=== PATIENT | male | born 1960 | race African-American/Black ===

== ENCOUNTER 2017-10-03 22:55 | Inpatient (IN) | payer OTHER, MEDICARE ==
[~2017-10-03 22:55] MED LIST: AMLO10TA2 PO; ASPI-516 CHEW; ATOR40TA16 PO; CHLO25TA2 PO; DEXTROSE 50% IN WATER 50 ML VIAL(D50) IV PUSH PRN; GLUCAGON 1 MG/ML VIAL OTHER PRN; LOSA50TA PO; METF1000 PO; RESP: ALBUTEROL 2.5 MG/IPRATROPIUM 0.5 MG NEB (PRN) INH
[2017-10-04] VITALS (21 sets, daily range): BP systolic 128–161; BP diastolic 78–94; PULSE 72–100; RESP 16–20; TEMP 98–98.6; O2SAT 91–96
[2017-10-04] MEDS ORDERED: NALOXONE HCL 0.4 MG/ML AMP IV PUSH PRN
[2017-10-04] MEDS: methylPREDNISolone SOD SUCC 40 MG/1 ML VIAL IV PUSH SCH ×4 (00:10→17:26)
[2017-10-04] MEDS: ENOXAPARIN SODIUM 40 MG/0.4 ML SYRINGE SQ SCH ×2 (00:10→21:32)
--- NOTE | 2017-10-04 00:20 | HHI.HP ---
[facility] Service [place] [facility] Primary Care Physician Non-Staff Admission Diagnosis Diagnoses: Travel History International Travel<30 Days: No Contact w/Intl Traveler <30 Da: No Traveled to Known Affected Are: No History of Present Illness 57-year-old male with a past medical history of hypertension, hyperlipidemia, type 2 diabetes mellitus and TADEO presents to the emergency department and [place] with a dry cough and increasing shortness of breath times the past 3 days. The patient denies any history of COPD. He also endorses subjective chills without fevers. He states he has had a chest pressure for the past 3 days. It is not worse with deep inspiration. ABG in the ED showed 7.33/83/86/ 43. Troponin was elevated at 0.16. EKG pending. Patient was briefly treated with BiPAP in the [place] ED but was transitioned to nasal cannula for transport to [facility]. He is currently satting 92% on 6 L nasal cannula. Review of Systems Denies fever, subjective chills Denies blurry vision, otorrhea, rhinorrhea Denies sore throat and cough Positive chest pressure, shortness of breath No abdominal pain Denies constipation/diarrhea/nausea/vomiting Denies muscle pain/weakness No rashes Past Family Social History Past Medical History Hypertension Diabetes mellitus TADEO Hyperlipidemia Past Surgical History Left hip Right leg Reported Medications Reported Meds & Active Scripts Active Reported Aspirin 81 Mg Chew 81 Mg CHEW DAILY Atorvastatin (Atorvastatin Calcium) 40 Mg Tab 40 Mg PO HS Amlodipine (Amlodipine Besylate) 10 Mg Tab 10 Mg PO DAILY Losartan (Losartan Potassium) 50 Mg Tab 50 Mg PO DAILY Chlorthalidone 25 Mg Tab 25 Mg PO DAILY Metformin (Metformin HCl) 1,000 Mg Tab 1,000 Mg PO BIDPC Allergies: Coded Allergies: No Known Allergies (Unverified , 10/03/17) Family History Mother with diabetes mellitus Social History Denies alcohol, tobacco and illicit drugs Physical Exam Physical Exam GENERAL: Obese, male sitting up SKIN: No rashes, ecchymoses or lesions. Cool and dry. HEAD: Atraumatic. Normocephalic. No temporal or scalp tenderness. EYES: Pupils equal round and reactive. Extraocular motions intact. No scleral icterus. No injection or drainage. ENT: Nose without bleeding, purulent drainage or septal hematoma. Throat without erythema, tonsillar hypertrophy or exudate. Uvula midline. Airway patent. NECK: Trachea midline. No JVD or lymphadenopathy. Supple, nontender, no meningeal signs. CARDIOVASCULAR: Regular rate and rhythm without murmurs, gallops, or rubs. RESPIRATORY: No accessory muscle use. No wheezes, rales or rhonchi. GASTROINTESTINAL: Abdomen soft, non-tender, nondistended. No hepato-splenomegaly , or palpable masses. No guarding. MUSCULOSKELETAL: Extremities without clubbing, cyanosis, or edema. No joint tenderness, effusion, or edema noted. No calf tenderness. NEUROLOGICAL: Awake and alert. Cranial nerves II through XII intact. Motor and sensory grossly within normal limits. Normal speech. Caprini VTE Risk Assessment Caprini VTE Risk Assessment: Mod/High Risk (score >= 2) Caprini Risk Assessment Model Point Value = 1 Point Value = 2 Point Value = 3 Point Value = 5 Age 41-60 Minor surgery BMI > 25 kg/m2 Swollen legs Varicose veins or History of unexplained or recurrent spontaneous Oral contraceptives or hormone replacement Sepsis (< 1 month) Serious lung disease, including pneumonia (< 1 month) Abnormal pulmonary function Acute myocardial infarction Congestive heart failure (< 1 month) History of inflammatory bowel disease Medical patient at bed rest Age 61-74 Arthroscopic surgery Major open surgery (> 45 min) Laparoscopic surgery (> 45 min) Malignancy Confined to bed (> 72 hours) Immobilizing plaster cast Central venous access Age >= 75 History of VTE Family history of VTE Factor V Leiden Prothrombin [id number] Lupus anticoagulant Anticardiolipin antibodies Elevated serum homocysteine Heparin-induced thrombocytopenia Other congenital or acquired thrombophilia Stroke (< 1 month) Elective arthroplasty Hip, pelvis, or leg fracture Acute spinal cord injury (< 1 month) Prophylaxis Regimen Total Risk Factor Score Risk Level Prophylaxis Regimen 0-1 Low Early ambulation 2 Moderate Order ONE of the following: *Sequential Compression Device (SCD) *Heparin 5000 units SQ BID 3-4 Higher Order ONE of the following medications: *Heparin 5000 units SQ TID *Enoxaparin/Lovenox 40 mg SQ daily (WT < 150 kg, CrCl > 30 mL/min) *Enoxaparin/Lovenox 30 mg SQ daily (WT < 150 kg, CrCl > 10-29 mL/min) *Enoxaparin/Lovenox 30 mg SQ BID (WT < 150 kg, CrCl > 30 mL/min) AND/OR *Sequential Compression Device (SCD) 5 or more Highest Order ONE of the following medications: *Heparin 5000 units SQ TID (Preferred with Epidurals) *Enoxaparin/Lovenox 40 mg SQ daily (WT < 150 kg, CrCl > 30 mL/min) *Enoxaparin/Lovenox 30 mg SQ daily (WT < 150 kg, CrCl > 10-29 mL/min) *Enoxaparin/Lovenox 30 mg SQ BID (WT < 150 kg, CrCl > 30 mL/min) AND *Sequential Compression Device (SCD) Assessment and Plan Assessment and Plan Assessment/plan: 1. Shortness of breath/hypercapnia Patient without previously diagnosed COPD ABG 7.33/83/86/43 BiPAP with repeat ABG pending DuoNeb's IV steroids Pulmonary consulted, appreciate recommendations Monitor for signs of respiratory failure 2. Chest pressure/elevated troponin Initial troponin 0.16 EKG pending ACS rule out pending; serial troponins/EKGs 3. Diabetes mellitus Holding home metformin SSI Monitor blood glucose 4. Hypertension/hyperlipidemia Continue home medication FEN Heart healthy diet Electrolytes: monitor and replete prn Lovenox Physician Certification 2 Midnight Certification Type: Admission for Inpatient Services Order for Inpatient Services The services are ordered in accordance with Medicare regulations or non- Medicare payer requirements, as applicable. In the case of services not specified as inpatient-only, they are appropriately provided as inpatient services in accordance with the 2-midnight benchmark. Estimated LOS (days): 2 2 days is the estimated time the patient will need to remain in the hospital, assuming treatment plan goals are met and no additional complications. Post-Hospital Plan: Not yet determined Kim Kimble MD Oct 04, 2017 00:20
[2017-10-04 02:52] LABS: AUTOMATED NEUTROPHIL # 3.9 TH/MM3 (1.8-7.7); BASOPHIL % 0.1 % (0.0-2.0); EOSINOPHIL % 0.1 % (0.0-4.0); HEMATOCRIT 50.3 % (39.0-51.0); HEMOGLOBIN 15.9 GM/DL (13.0-17.0); LYMPH % 9.6 % (9.0-44.0); LYMPHOCYTE # 0.4 TH/MM3 (1.0-4.8); MEAN CELL VOLUME 91.5 FL (80.0-100.0); MEAN CORPUSCULAR HGB CONC 31.7 % (32.0-36.0); MEAN PLATELET VOLUME 8.2 FL (7.0-11.0); MONO % 1.2 % (0.0-8.0); MONOCYTE # 0.1 TH/MM3 (0-0.9); PLATELET COUNT 124 TH/MM3 (150-450); RED CELL DISTRIBUTION WIDTH 15.2 % (11.6-17.2); WHITE BLOOD COUNT 4.4 TH/MM3 (4.0-11.0)
[2017-10-04 03:10] LABS: BICARBONATE 40.5 MEQ/L (21.0-32.0); CALCIUM 8.8 MG/DL (8.5-10.1); CREATININE 0.95 MG/DL (0.60-1.30)
[2017-10-04 03:15] LABS: TROPONIN I 0.16 NG/ML (0.02-0.05)
[2017-10-04] MEDS: RESP: ALBUTEROL 2.5 MG/IPRATROPIUM 0.5 MG NEB (SCH) INH ×4 (04:00→20:13)
[2017-10-04] MEDS: INSULIN ASPART SUPPLEMENTAL SCALE SQ SCH ×4 (08:00→21:00)
[2017-10-04] MEDS: SODIUM CHLORIDE 0.9% FLUSH 10 ML FLUSH IV FLUSH SCH ×2 (08:52→21:00)
[2017-10-04] MEDS: ASPIRIN 81 MG CHEW TAB CHEW SCH (08:54)
[2017-10-04] MEDS: LOSARTAN 50 MG TAB PO SCH (08:54)
[2017-10-04] MEDS: PT OWN CHLORTHALIDONE 25 MG PO SCH (09:00)
[2017-10-04 10:20] LABS: TROPONIN I 0.14 NG/ML (0.02-0.05)
[2017-10-04] MEDS: LEVOFLOXACIN 750 MG PREMIX INJ 150 ML IV SCH (13:00)
[2017-10-04] MEDS ORDERED: DOCUSATE SODIUM 50 MG/SENNA 8.6 MG TAB PO PRN (13:30)
[2017-10-04] MEDS ORDERED: ONDANSETRON HCL 4 MG/2 ML VIAL IV PUSH PRN (13:30)
[2017-10-04] MEDS ORDERED: ACETAMINOPHEN 325 MG TAB PO PRN (13:30)
[2017-10-04] MEDS ORDERED: CALCIUM CARBONATE 500 MG CHEWABLE TAB CHEW PRN (13:30)
--- NOTE | 2017-10-04 13:30 | HHI.PR ---
Subjective Remarks Follow-up COPD exacerbation/respiratory failure with hypercapnia 10/04/17-patient seen and examined currently short of breath, denies any chest pain. On 10L simple mask Objective Vitals Vital Signs Date Time Temp Pulse Resp B/P (MAP) Pulse Ox O2 Delivery O2 Flow Rate FiO2 10/04/17 13:20 92 40 10/04/17 10:55 94 40 10/04/17 10:00 72 10/04/17 09:00 100 10/04/17 08:59 96 10/04/17 08:00 98.0 100 18 142/94 (110) 94 10/04/17 08:00 97 10/04/17 07:56 95 Simple Mask 10.00 10/04/17 07:00 97 10/04/17 06:00 96 10/04/17 05:00 98 10/04/17 04:00 98 10/04/17 04:00 94 40 10/04/17 03:00 94 10/04/17 03:00 98.2 95 17 154/93 (113) 94 10/04/17 01:47 93 40 10/04/17 00:19 98.4 88 20 161/78 (105) 92 I/O 10/03/17 10/03/17 10/03/17 10/04/17 10/04/17 10/04/17 07:00 15:00 23:00 07:00 15:00 23:00 Intake Total 240 ml Output Total 350 ml Balance -110 ml Intake Oral 240 ml Output Urine Total 350 ml Result Diagram: 10/04/1722710/04/178 Objective Remarks GENERAL: NAD SKIN: Warm and dry. HEAD: Normocephalic. EYES: No scleral icterus. No injection or drainage. NECK: Supple, trachea midline. No JVD or lymphadenopathy. CARDIOVASCULAR: Regular rate and rhythm without murmurs, gallops, or rubs. RESPIRATORY: Breath sounds decrease bilaterally. No accessory muscle use. GASTROINTESTINAL: Abdomen soft, non-tender, nondistended. MUSCULOSKELETAL: No cyanosis, or edema. BACK: Nontender without obvious deformity. No CVA tenderness. A/P Problem List: (1) Respiratory failure with hypercapnia ICD Code: J96.92 - Respiratory failure, unspecified with hypercapnia (2) COPD with exacerbation ICD Code: J44.1 - Chronic obstructive pulmonary disease with (acute) exacerbation Assessment and Plan 57-year-old man with 1. Respiratory failure with hypercapnia/COPD exacerbation Repeat ABG Resume BiPAP and consult and consult pulmonary medicine Continue steroid, DuoNeb, add Spiriva and antibiotic Check CTA to rule out PE 2. Chest pressure/elevated troponin Check CTA to rule out PE 3. Diabetes mellitus Holding home metformin SSI Monitor blood glucose 4. Hypertension/hyperlipidemia Continue home medication Leroy Baker MD Oct 04, 2017 13:30
--- NOTE | 2017-10-04 13:52 | EKG ---
Date Performed: 10/04/2017 Time Performed: 08:32:50 PTAGE: 57 years EKG: Sinus rhythm Poor R wave progression - probable normal variant Borderline ECG PREVIOUS TRACING : 10/04/2017 01.56 DOCTOR: Chepe Reyes Interpretating Date/Time 10/04/2017 13:50:57
--- NOTE | 2017-10-04 14:40 | EKG ---
Date Performed: 10/04/2017 Time Performed: 01:56:50 PTAGE: 57 years EKG: Sinus rhythm Poor R wave progression - probable normal variant Low QRS voltages in limb leads Borderline ECG NO PREVIOUS TRACING DOCTOR: Chepe Reyes Interpretating Date/Time 10/04/2017 14:39:56
[2017-10-04 14:53] LABS: INTERNATIONAL NORMALIZED RATIO 1.1 RATIO; PROTHROMBIN TIME - PATIENT 11.6 SEC (9.8-11.6)
[2017-10-04] MEDS: RESP: ALBUTEROL 2.5 MG/IPRATROPIUM 0.5 MG NEB (SCH) NEB ×2 (16:00→20:13)
[2017-10-04] MEDS ORDERED: IOHEXOL 350 MG/ML 10 ML VIAL (for RAD DIAG) IVCONTRAST ONE (16:53)
--- NOTE | 2017-10-04 17:04 | RADRPT ---
EXAM DATE/TIME: 10/04/2017 16:20 [facility] COMPARISON: No previous studies available for comparison. INDICATIONS : Hypoxic IV CONTRAST: 75 cc Omnipaque 350 (iohexol) IV RADIATION DOSE: 25.97 CTDIvol (mGy) MEDICAL HISTORY : Hypertension. Diabetes SURGICAL HISTORY : None. ENCOUNTER: Initial ACUITY: 1 day PAIN SCALE: 0/10 LOCATION: chest TECHNIQUE: Volumetric scanning of the chest was performed using a pulmonary embolism protocol MIP images were re constructed. Using automated exposure control and adjustment of the mA and/or kV according to patien t size, radiation dose was kept as low as reasonably achievable to obtain optimal diagnostic quality images. DICOM format image data is available electronically for review and comparison. Follow-up recommendations for detected pulmonary nodules are based at a minimum on nodule size and pa tient risk factors according to Fleischner Society Guidelines. FINDINGS: PULMONARY ARTERIES: No filling defects are seen in the pulmonary arteries through the segmental level. LUNGS: Subsegmental airspace disease is identified in the right lower lobe. The lungs are otherwise clear. PLEURAE: There is no pleural thickening or pleural effusion. MEDIASTINUM: A paratracheal soft tissue mass is identified in the superior mediastinum characteristics of substern al extension of a thyroid goiter. Small prevascular lymph nodes are seen along the aortic arch. The largest measures 2.2 x 0.88 cm in size. Heart is unremarkable except for mild calcific plaque in the coronary arteries. MUSCULOSKELETAL: Within normal limits for patient age. MISCELLANEOUS: The liver appears enlarged. CONCLUSION: 1. No evidence of pulmonary embolism. 2. Right lower lobe subsegmental airspace disease. 3. Nonspecific prevascular manny enlargement. 4. Hepatomegaly. 5. Superior mediastinal mass characteristic of a large thyroid goiter. Ravin Alexis MD on October 04, 2017 at 16:58 Board Certified Radiologist. This report was verified electronically.
[2017-10-04] MEDS: HEPARIN SODIUM - SQ 10,000 UNITS/ML VIAL SQ SCH (21:31)
[2017-10-04] MEDS: ATORVASTATIN 40 MG TAB PO SCH (21:31)
--- NOTE | 2017-10-04 21:41 | MB ---
cc: KATINA OLIVIER DATE OF CONSULTATION 10/04/2017 REASON FOR CONSULTATION Respiratory failure, COPD and possible sleep apnea. HISTORY OF PRESENT ILLNESS This is a 57-year-old obese man with a history of hypertension, hyperlipidemia, diabetes mellitus type 2 and obstructive sleep apnea was [facility] with a dry cough, wheezing, shortness of breath for 2-3 days. The patient also had some chills and fevers, chest pressure and weakness and pain upon taking deep breaths. A chest x-ray was done which showed evidence of atelectasis and the patient had blood gases which showed hypercapnia and hypoxemia. He was placed on BiPap and transferred to the intensive care unit. The patient has a cough but does not bring up much sputum. He does have some leg swelling. He has no hemoptysis. PAST MEDICAL HISTORY Past history has included: 1. A history of diabetes mellitus type 2. 2. History of obstructive sleep apnea. 3. Hyperlipidemia. 4. He has had surgery of the left hip. SOCIAL HISTORY Habits, the patient does not smoke. No significant alcohol use. FAMILY HISTORY Significant for diabetes mellitus. MEDICATIONS 1. Metformin 1000 mg b.i.d. 2. Losartan 50 mg a day. 3. Chlorthalidone 25 milligrams. 4. Atorvastatin 40 mg at bedtime. 5. Amlodipine 10 mg daily. 6. Aspirin one daily. REVIEW OF SYSTEMS The patient is unable to provide any details. He is on a BiPap mask presently. ALLERGIES None listed. PHYSICAL EXAMINATION GENERAL: This obese, middle-aged -[place] male who is in bed. He is on BiPap mask. He is mildly dyspneic at rest. VITAL SIGNS: Blood pressure 150/70, pulse 90, respirations 24, temperature 98.2. HEENT: Head normocephalic. Pupils are reactive. Tongue is moist. Nasal mucosal erythematous. NECK: Supple with mild venous distension while sitting upright, trachea midline. No thyroid enlargement. CHEST: Distant breath sounds with expiratory wheezes throughout both lung julio. Prolonged expirations. HEART: The heart sounds are regular S1-S2 with no murmur. No S3. ABDOMEN: The abdomen is soft, protuberant without masses. No organomegaly or tenderness. Bowel sounds are active. EXTREMITIES: Mild varicosities, edema 1+. Peripheral pulses are not well palpable. NEUROLOGIC: He is awake, moves all extremities and responds appropriately. Reflexes are 1+. No gross motor deficits. SKIN: No lesions observed. IMPRESSION 1. Hypercapnic respiratory failure. 2. Basilar atelectasis with probable pneumonia. 3. Rule out pulmonary embolism. 4. Chronic obstructive pulmonary disease. 5. Diabetes mellitus. 6. Obstructive sleep apnea. 7. Hypertension. PLAN The patient has been scheduled to go for a CTA of chest. We will also place him on subcu heparin at 5000 units b.i.d. We will add Levaquin 750 mg IV daily for exacerbation of COPD. Solu-Medrol 40 mg IV q.6h. A blood gas study to be repeated on BiPap which will be placed at 15/7 and FIO2 of 35%. The patient will be continued on his hypertensive medications and diabetic medications. Repeat chest x-ray in the a.m. Sputum will be sent for Gram stain and culture. A nebulized DuoNeb solution was started every 4 hours while awake. Thank you Dr. Baker for this consultation. MD RTICIA Abernathy/ANA CRISTINA /5:29 PM /9:16 PM
[2017-10-05] VITALS (14 sets, daily range): BP systolic 123–139; BP diastolic 76–85; PULSE 80–93; RESP 18–20; TEMP 98.3–98.7; O2SAT 91–94
[2017-10-05] MEDS: methylPREDNISolone SOD SUCC 40 MG/1 ML VIAL IV PUSH SCH ×4 (01:27→17:25)
[2017-10-05 05:53] LABS: AUTOMATED NEUTROPHIL # 2.9 TH/MM3 (1.8-7.7); BASOPHIL % 0.1 % (0.0-2.0); HEMATOCRIT 49.5 % (39.0-51.0); HEMOGLOBIN 15.4 GM/DL (13.0-17.0); LYMPH % 7.6 % (9.0-44.0); LYMPHOCYTE # 0.3 TH/MM3 (1.0-4.8); MEAN CORPUSCULAR HEMOGLOBIN 28.6 PG (27.0-34.0); MEAN CORPUSCULAR HGB CONC 31.1 % (32.0-36.0); MEAN PLATELET VOLUME 7.7 FL (7.0-11.0); MONO % 5.6 % (0.0-8.0); MONOCYTE # 0.2 TH/MM3 (0-0.9); NEUT % 86.7 % (16.0-70.0); PLATELET COUNT 123 TH/MM3 (150-450); RED BLOOD COUNT 5.38 MIL/MM3 (4.50-5.90); RED CELL DISTRIBUTION WIDTH 15.3 % (11.6-17.2); WHITE BLOOD COUNT 3.4 TH/MM3 (4.0-11.0)
[2017-10-05] MEDS ORDERED: methylPREDNISolone SOD SUCC 125 MG/2 ML VIAL ONE (06:07)
[2017-10-05 06:12] LABS: BICARBONATE 42.7 MEQ/L (21.0-32.0); CREATININE 0.75 MG/DL (0.60-1.30)
[2017-10-05] MEDS: RESP: ALBUTEROL 2.5 MG/IPRATROPIUM 0.5 MG NEB (SCH) NEB ×4 (07:35→20:08)
[2017-10-05] MEDS: INSULIN ASPART SUPPLEMENTAL SCALE SQ SCH ×4 (08:16→21:50)
[2017-10-05] MEDS: PT OWN CHLORTHALIDONE 25 MG PO SCH (09:00)
[2017-10-05] MEDS: LOSARTAN 50 MG TAB PO SCH (09:11)
[2017-10-05] MEDS: ASPIRIN 81 MG CHEW TAB CHEW SCH (09:12)
[2017-10-05] MEDS: HYDROCHLOROTHIAZIDE 25 MG TAB PO SCH (09:12)
[2017-10-05] MEDS: TIOTROPIUM BROMIDE 18 MCG INH INH SCH (09:12)
[2017-10-05] MEDS: HEPARIN SODIUM - SQ 10,000 UNITS/ML VIAL SQ SCH ×2 (09:12→21:51)
[2017-10-05] MEDS: SODIUM CHLORIDE 0.9% FLUSH 10 ML FLUSH IV FLUSH SCH ×2 (09:13→21:51)
--- NOTE | 2017-10-05 09:24 | HHI.PR ---
Subjective Remarks Follow-up COPD exacerbation/respiratory failure with hypercapnia 10/04/17-patient seen and examined currently short of breath, denies any chest pain. On 10L simple mask 10/05/17-patient seen and examined, required BiPAP 4 hours overnight. States he feels some dizziness when standing up. Still with some shortness of breath. BP improved. Patient currently now on 8 L nasal cannula Objective Vitals Vital Signs Date Time Temp Pulse Resp B/P (MAP) Pulse Ox O2 Delivery O2 Flow Rate FiO2 10/05/17 07:36 98.4 84 20 136/85 (102) 94 10/05/17 07:35 84 10/05/17 07:35 92 Nasal Cannula 6.00 10/05/17 07:34 94 Nasal Cannula 6.00 10/05/17 05:33 92 Nasal Cannula 6.00 10/05/17 04:35 93 40 10/05/17 03:17 90 Bi-Pap 40 10/05/17 03:00 98.6 90 18 139/80 (99) 91 10/05/17 03:00 90 10/05/17 00:12 93 40 10/05/17 00:00 90 Bi-Pap 40 10/04/17 23:00 94 10/04/17 23:00 93 Nasal Cannula 6.00 10/04/17 23:00 98.6 94 18 144/78 (100) 94 10/04/17 20:13 95 Nasal Cannula 6.00 10/04/17 19:00 98.4 89 18 153/85 (107) 91 10/04/17 19:00 91 Nasal Cannula 6.00 10/04/17 19:00 81 10/04/17 17:12 95 40 10/04/17 15:00 94 10/04/17 15:00 94 Bi-Pap 40 10/04/17 15:00 98.3 94 16 134/87 (103) 94 10/04/17 13:20 92 40 10/04/17 13:00 96 10/04/17 12:00 98.1 98 18 128/81 (97) 95 10/04/17 12:00 98 10/04/17 10:55 94 40 10/04/17 10:00 72 I/O 10/04/17 10/04/17 10/04/17 10/05/17 10/05/17 10/05/17 07:00 15:00 23:00 07:00 15:00 23:00 Intake Total 240 ml 200 ml 480 ml Output Total 350 ml 950 ml 1820 ml Balance -110 ml -750 ml -1340 ml Intake Oral 240 ml 200 ml 480 ml Output Urine Total 350 ml 950 ml 1820 ml # Bowel Movements 0 Result Diagram: 10/05/17 0453 10/05/17 [address] Angiography 10/04/17 1246 Signed Impressions: Service Date/Time: Wednesday, October 04, 2017 16:20 - CONCLUSION: 1. No evidence of pulmonary embolism. 2. Right lower lobe subsegmental airspace disease. 3. Nonspecific prevascular manny enlargement. 4. Hepatomegaly. 5. Superior mediastinal mass characteristic of a large thyroid goiter. Ravin Alexis MD Objective Remarks GENERAL: NAD SKIN: Warm and dry. HEAD: Normocephalic. EYES: No scleral icterus. No injection or drainage. NECK: Supple, trachea midline. No JVD or lymphadenopathy. CARDIOVASCULAR: Regular rate and rhythm without murmurs, gallops, or rubs. RESPIRATORY: Breath sounds decrease bilaterally. No accessory muscle use. GASTROINTESTINAL: Abdomen soft, non-tender, nondistended. MUSCULOSKELETAL: No cyanosis, or edema. BACK: Nontender without obvious deformity. No CVA tenderness. A/P Problem List: (1) Respiratory failure with hypercapnia ICD Code: J96.92 - Respiratory failure, unspecified with hypercapnia (2) COPD with exacerbation ICD Code: J44.1 - Chronic obstructive pulmonary disease with (acute) exacerbation (3) Benign hypertension ICD Code: I10 - Essential (primary) hypertension (4) Diabetes mellitus, type II ICD Code: E11.9 - Type 2 diabetes mellitus without complications Assessment and Plan 57-year-old man with 1. Respiratory failure with hypercapnia/COPD exacerbation BiPAP when necessary Appreciate input from pulmonary medicine CTA noted and review by me without any evidence of PE Continue steroid, DuoNeb, Spiriva and antibiotic Wean oxygen 2. Chest pressure/elevated troponin CTA WITHOUT ANY evidence of PE 3. Diabetes mellitus Continue to Holding home metformin SSI Monitor blood glucose 4. Hypertension/hyperlipidemia Continue home medications DVT prophylaxis: Heparin PT consult to treat and eval Will transfer patient to [facility] Total critical care time spent 50 minutes Leroy Baker MD Oct 05, 2017 09:24
--- NOTE | 2017-10-05 12:45 | HHI.PR ---
Subjective Remarks He is better. Now on a N/C at 5 l. Has some wheezing. Used BiPAP last PM Objective Vital Signs Date Time Temp Pulse Resp B/P (MAP) Pulse Ox O2 Delivery O2 Flow Rate FiO2 10/05/17 11:11 94 Nasal Cannula 6.00 10/05/17 11:11 88 10/05/17 11:10 98.3 88 20 123/77 (92) 94 10/05/17 07:36 98.4 84 20 136/85 (102) 94 10/05/17 07:35 84 10/05/17 07:35 92 Nasal Cannula 6.00 10/05/17 07:34 94 Nasal Cannula 6.00 10/05/17 05:33 92 Nasal Cannula 6.00 10/05/17 04:35 93 40 10/05/17 03:17 90 Bi-Pap 40 10/05/17 03:00 98.6 90 18 139/80 (99) 91 10/05/17 03:00 90 10/05/17 00:12 93 40 10/05/17 00:00 90 Bi-Pap 40 10/04/17 23:00 94 10/04/17 23:00 93 Nasal Cannula 6.00 10/04/17 23:00 98.6 94 18 144/78 (100) 94 10/04/17 20:13 95 Nasal Cannula 6.00 10/04/17 19:00 98.4 89 18 153/85 (107) 91 10/04/17 19:00 91 Nasal Cannula 6.00 10/04/17 19:00 81 10/04/17 17:12 95 40 10/04/17 15:00 94 10/04/17 15:00 94 Bi-Pap 40 10/04/17 15:00 98.3 94 16 134/87 (103) 94 10/04/17 13:20 92 40 10/04/17 13:00 96 I/O 10/04/17 10/04/17 10/04/17 10/05/17 10/05/17 10/05/17 07:00 15:00 23:00 07:00 15:00 23:00 Intake Total 240 ml 200 ml 480 ml Output Total 350 ml 950 ml 1820 ml Balance -110 ml -750 ml -1340 ml Intake Oral 240 ml 200 ml 480 ml Output Urine Total 350 ml 950 ml 1820 ml # Bowel Movements 0 Result Diagram: 10/05/17 0453 10/05/17 0453 Objective Remarks GENERAL: This obese, middle-aged -[place] male who is in bed. He is mildly dyspneic at rest. HEENT: Head normocephalic. Pupils are reactive. Tongue is moist. Nasal mucosal erythematous. NECK: Supple with mild venous distension while sitting upright, trachea midline. No thyroid enlargement. CHEST: Distant breath sounds with expiratory wheezes throughout both lung julio. Prolonged expirations.Occ Crackles at bases HEART: The heart sounds are regular S1-S2 with no murmur. No S3. ABDOMEN: The abdomen is soft, protuberant without masses. No organomegaly or tenderness. Bowel sounds are active. EXTREMITIES: Mild varicosities, edema 1+. Peripheral pulses are not well palpable. NEUROLOGIC: He is awake, moves all extremities and responds appropriately. Reflexes are 1+. No gross motor deficits. SKIN: No lesions observed. Assessment and Plan Assessment and Plan IMPRESSION 1. Hypercapnic respiratory failure. 2. Basilar atelectasis with probable pneumonia. 3. Rule out pulmonary embolism. 4. Chronic obstructive pulmonary disease. 5. Diabetes mellitus. 6. Obstructive sleep apnea. 7. Hypertension. Plan : 1. Wean o2 to keep sat >90. 2. Continue antibiotics, Rocephin,and Levaquin 3. BiPAP at HS12/5 CM,FIO2 30% 4. PFT in am. [facility]. [facility] 6. CBC,CXR in am 7. Symbicort 160/4.5 Mcg , 2 puffs bid Lynette Louise MD Oct 05, 2017 12:45
[2017-10-05] MEDS: LEVOFLOXACIN 750 MG PREMIX INJ 150 ML IV SCH (13:23)
[2017-10-05] MEDS: cefTRIAXone INJ 2,000 MG in SODIUM CHLORIDE 0.9% INJ 100 ML IV SCH (17:25)
[2017-10-05] MEDS: ATORVASTATIN 40 MG TAB PO SCH (21:51)
[2017-10-06] VITALS (10 sets, daily range): BP systolic 119–135; BP diastolic 59–80; PULSE 16–94; RESP 15–18; TEMP 97.3–99; O2SAT 35–99
--- NOTE | 2017-10-06 05:53 | RADRPT ---
EXAM DATE/TIME: 10/06/2017 04:55 [facility] COMPARISON: CHEST SINGLE AP, October 03, 2017, 18:52. INDICATIONS : Evaluate for infiltrate MEDICAL HISTORY : Hypertension. Diabetes mellitus type II. SURGICAL HISTORY : None. ENCOUNTER: Subsequent ACUITY: 4 - 6 days PAIN SCORE: Non-responsive. LOCATION: Bilateral chest FINDINGS: Single AP view of the chest. Low lung volumes with elevation of right hemidiaphragm unchanged. Cardia c silhouette is prominent but unchanged. New mild patchy opacity in the right midlung indicating atelectasis versus minimal consolidation. No evidence of pleural effusion or pneumothorax. CONCLUSION: New mild patchy opacity in right midlung. Carrington Elizondo MD on October 06, 2017 at 5:51 Board Certified Radiologist. This report was verified electronically.
[2017-10-06] MEDS: methylPREDNISolone SOD SUCC 40 MG/1 ML VIAL IV PUSH SCH ×4 (06:00→21:56)
[2017-10-06] MEDS: RESP: ALBUTEROL 2.5 MG/IPRATROPIUM 0.5 MG NEB (SCH) NEB ×4 (07:23→19:08)
[2017-10-06] MEDS: INSULIN ASPART SUPPLEMENTAL SCALE SQ SCH ×4 (08:00→21:55)
[2017-10-06] MEDS: LOSARTAN 50 MG TAB PO SCH (08:58)
[2017-10-06] MEDS: ASPIRIN 81 MG CHEW TAB CHEW SCH (08:58)
[2017-10-06] MEDS: TIOTROPIUM BROMIDE 18 MCG INH INH SCH (08:58)
[2017-10-06] MEDS: HEPARIN SODIUM - SQ 10,000 UNITS/ML VIAL SQ SCH ×2 (08:58→21:42)
[2017-10-06] MEDS: HYDROCHLOROTHIAZIDE 25 MG TAB PO SCH (08:59)
[2017-10-06] MEDS: PT OWN CHLORTHALIDONE 25 MG PO SCH (08:59)
[2017-10-06] MEDS: SODIUM CHLORIDE 0.9% FLUSH 10 ML FLUSH IV FLUSH SCH ×2 (08:59→21:42)
--- NOTE | 2017-10-06 12:10 | HHI.PR ---
Subjective Remarks Follow-up COPD exacerbation/respiratory failure with hypercapnia 10/04/17-patient seen and examined currently short of breath, denies any chest pain. On 10L simple mask 10/05/17-patient seen and examined, required BiPAP 4 hours overnight. States he feels some dizziness when standing up. Still with some shortness of breath. BP improved. Patient currently now on 8 L nasal cannula 10/06/17-patient seen and examined, currently on 3 nasal cannula and reports some improvement of shortness of breath. No acute event overnight.Did No use BiPAP overnight to sleep. Objective Vitals Vital Signs Date Time Temp Pulse Resp B/P (MAP) Pulse Ox O2 Delivery O2 Flow Rate FiO2 10/06/17 11:01 3.00 10/06/17 11:01 93 3.00 10/06/17 11:00 90 10/06/17 11:00 97.3 17 16 127/78 (94) 93 10/06/17 11:00 93 Nasal Cannula 2.00 10/06/17 07:00 97.8 16 16 130/77 (94) 96 10/06/17 07:00 96 Bi-Pap 40 10/06/17 07:00 81 10/06/17 04:00 35 35 10/06/17 03:00 84 10/06/17 03:00 98.5 85 15 135/80 (98) 95 10/06/17 03:00 95 Bi-Pap 40 10/06/17 00:40 97 40 10/05/17 23:00 94 Nasal Cannula 4.00 10/05/17 23:00 86 10/05/17 23:00 98.6 80 18 126/79 (95) 94 10/05/17 20:07 93 Nasal Cannula 3.00 10/05/17 19:00 98.7 93 20 128/78 (95) 91 10/05/17 19:00 93 10/05/17 19:00 91 Nasal Cannula 4.00 10/05/17 15:07 92 10/05/17 15:06 98.3 92 20 132/76 (94) 94 10/05/17 15:06 94 Nasal Cannula 3.00 10/05/17 13:14 93 Nasal Cannula 3.00 I/O 10/05/17 10/05/17 10/05/17 10/06/17 10/06/1710/06/17 07:00 15:00 23:00 07:00 15:00 23:00 Intake Total 480 ml 150 ml 1500 ml 480 ml Output Total 1820 ml 1060 ml 1990 ml Balance -1340 ml 150 ml 440 ml -1510 ml Intake Oral 480 ml 1400 ml 480 ml IV Total 150 ml 100 ml Output Urine Total 1820 ml 1060 ml 1990 ml # Voids 3 6 # Bowel Movements 0 0 Result Diagram: 10/05/17 0453 10/05/17 0453 Imaging Last Impressions Chest X-Ray 10/06/17 0600 Signed Impressions: Service Date/Time: Friday, October 06, 2017 04:55 - CONCLUSION: New mild patchy opacity in right midlung. Carrington Elizondo MD CT Angiography 10/04/17 1246 Signed Impressions: Service Date/Time: Wednesday, October 04, 2017 16:20 - CONCLUSION: 1. No evidence of pulmonary embolism. 2. Right lower lobe subsegmental airspace disease. 3. Nonspecific prevascular manny enlargement. 4. Hepatomegaly. 5. Superior mediastinal mass characteristic of a large thyroid goiter. Ravin Alexis MD Objective Remarks GENERAL: NAD SKIN: Warm and dry. HEAD: Normocephalic. EYES: No scleral icterus. No injection or drainage. NECK: Supple, trachea midline. No JVD or lymphadenopathy. CARDIOVASCULAR: Regular rate and rhythm without murmurs, gallops, or rubs. RESPIRATORY: Breath sounds decrease bilaterally. No accessory muscle use. GASTROINTESTINAL: Abdomen soft, non-tender, nondistended. MUSCULOSKELETAL: No cyanosis, or edema. BACK: Nontender without obvious deformity. No CVA tenderness. Procedures none A/P Problem List: (1) Respiratory failure with hypercapnia ICD Code: J96.92 - Respiratory failure, unspecified with hypercapnia (2) COPD with exacerbation ICD Code: J44.1 - Chronic obstructive pulmonary disease with (acute) exacerbation (3) Benign hypertension ICD Code: I10 - Essential (primary) hypertension (4) Diabetes mellitus, type II ICD Code: E11.9 - Type 2 diabetes mellitus without complications (5) PNA (pneumonia) ICD Code: J18.9 - Pneumonia, unspecified organism Assessment and Plan 57-year-old man with 1. Respiratory failure with hypercapnia/COPD exacerbation-Improving BiPAP when necessary Appreciate input from pulmonary medicine CTA noted and review by me without any evidence of PE Continue steroid, DuoNeb, Spiriva and antibiotics according Rocephin and Levaquin per pulmonary medicine Wean oxygen Will do walk test 2. Community acquired pneumonia Chest x-ray noted and review with finding of mid right lung opacity Currently on both Rocephin and Levaquin 3. Chest pressure/elevated troponin CTA WITHOUT ANY evidence of PE 4. Diabetes mellitus Resume home metformin SSI Monitor blood glucose 5. Hypertension/hyperlipidemia Continue home medications DVT prophylaxis: Heparin PT consult to treat and eval Will transfer patient to [facility] Total critical care time spent 45 minutes Leroy Baker MD Oct 06, 2017 12:10
[2017-10-06] MEDS: LEVOFLOXACIN 750 MG PREMIX INJ 150 ML IV SCH (14:01)
[2017-10-06] MEDS: SODIUM CHLORIDE 0.9% FLUSH 10 ML FLUSH IV FLUSH PRN (14:03)
[2017-10-06] MEDS: cefTRIAXone INJ 2,000 MG in SODIUM CHLORIDE 0.9% INJ 100 ML IV SCH (16:46)
--- NOTE | 2017-10-06 18:38 | HHI.PR ---
Subjective Remarks He is better. Now on a N/C at 3 l. Has less wheezing. CXR improved. Used BiPAP last PM Objective Vital Signs Date Time Temp Pulse Resp B/P (MAP) Pulse Ox O2 Delivery O2 Flow Rate FiO2 10/06/17 16:00 97.6 76 17 129/78 (95) 95 10/06/17 15:17 93 Nasal Cannula 4.00 10/06/17 11:01 3.00 10/06/17 11:01 93 3.00 10/06/17 11:00 90 10/06/17 11:00 97.3 17 16 127/78 (94) 93 10/06/17 11:00 93 Nasal Cannula 2.00 10/06/17 07:00 97.8 16 16 130/77 (94) 96 10/06/17 07:00 96 Bi-Pap 40 10/06/17 07:00 81 10/06/17 04:00 35 35 10/06/17 03:00 84 10/06/17 03:00 98.5 85 15 135/80 (98) 95 10/06/17 03:00 95 Bi-Pap 40 10/06/17 00:40 97 40 10/05/17 23:00 94 Nasal Cannula 4.00 10/05/17 23:00 86 10/05/17 23:00 98.6 80 18 126/79 (95) 94 10/05/17 20:07 93 Nasal Cannula 3.00 10/05/17 19:00 98.7 93 20 128/78 (95) 91 10/05/17 19:00 93 10/05/17 19:00 91 Nasal Cannula 4.00 I/O 10/05/17 10/05/17 10/05/17 10/06/17 10/06/17 10/06/17 07:00 15:00 23:00 07:00 15:00 23:00 Intake Total 480 ml 150 ml 1500 ml 480 ml 120 ml Output Total 1820 ml 1060 ml 1990 ml 300 ml Balance -1340 ml 150 ml 440 ml -1510 ml -180 ml Intake Oral 480 ml 1400 ml 480 ml 120 ml IV Total 150 ml 100 ml Output Urine Total 1820 ml 1060 ml 1990 ml 300 ml # Voids 3 6 # Bowel Movements 0 0 0 Result Diagram: 10/05/1745210/05/17452 Objective Remarks GENERAL: This obese, middle-aged -[place] male who is mildly dyspneic at rest. HEENT: Head normocephalic. Pupils are reactive. Tongue is moist. Nasal mucosal erythematous. NECK: Supple with mild venous distension while sitting upright, trachea midline. No thyroid enlargement. CHEST: Distant breath sounds with expiratory wheezes over both lung julio. Prolonged expirations.Occ Crackles at bases HEART: The heart sounds are regular S1-S2 with no murmur. No S3. ABDOMEN: The abdomen is soft, protuberant without masses. No organomegaly or tenderness. Bowel sounds are active. EXTREMITIES: Mild varicosities, edema 1+. Peripheral pulses are not well palpable. NEUROLOGIC: He is awake, moves all extremities and responds appropriately. Reflexes are 1+. No gross motor deficits. SKIN: No lesions observed. Assessment and Plan Assessment and Plan IMPRESSION 1. Hypercapnic respiratory failure. 2. Basilar atelectasis with probable pneumonia. 3. Rule out pulmonary embolism. 4. Chronic obstructive pulmonary disease. 5. Diabetes mellitus. 6. Obstructive sleep apnea. 7. Hypertension. Plan : 1. Wean o2 to keep sat >90. 2. Continue antibiotics, Rocephin,and Levaquin 3. BiPAP at HS12/5 CM,FIO2 30% 4. PFT in am. 5. Ambulate with help 6. CBC,BMP in am 7. Symbicort 160/4.5 Mcg , 2 puffs bid 8. Will Arrange home sleep study. Lynette Louise MD Oct 06, 2017 18:38
[2017-10-06] MEDS: ATORVASTATIN 40 MG TAB PO SCH (21:42)
[2017-10-07] VITALS (8 sets, daily range): BP systolic 105–142; BP diastolic 62–83; PULSE 65–98; RESP 18–20; TEMP 95.3–99.1; O2SAT 92–96
[2017-10-07] MEDS: SODIUM CHLORIDE 0.9% FLUSH 10 ML FLUSH IV FLUSH PRN (04:26)
[2017-10-07] MEDS: methylPREDNISolone SOD SUCC 40 MG/1 ML VIAL IV PUSH SCH ×3 (04:26→21:06)
[2017-10-07] MEDS: RESP: ALBUTEROL 2.5 MG/IPRATROPIUM 0.5 MG NEB (SCH) NEB ×4 (07:46→21:13)
[2017-10-07] MEDS: HYDROCHLOROTHIAZIDE 25 MG TAB PO SCH (08:46)
[2017-10-07] MEDS: HEPARIN SODIUM - SQ 10,000 UNITS/ML VIAL SQ SCH ×2 (08:47→21:08)
[2017-10-07] MEDS: THEOPHYLLINE 200 MG EXTENDED RELEASE CAP PO SCH (08:47)
[2017-10-07] MEDS: LOSARTAN 50 MG TAB PO SCH (08:47)
[2017-10-07] MEDS: ASPIRIN 81 MG CHEW TAB CHEW SCH (08:47)
[2017-10-07] MEDS: INSULIN ASPART SUPPLEMENTAL SCALE SQ SCH ×4 (08:48→21:26)
[2017-10-07] MEDS: TIOTROPIUM BROMIDE 18 MCG INH INH SCH (08:48)
[2017-10-07] MEDS: SODIUM CHLORIDE 0.9% FLUSH 10 ML FLUSH IV FLUSH SCH ×2 (08:48→21:07)
[2017-10-07] MEDS: PT OWN CHLORTHALIDONE 25 MG PO SCH (08:54)
[2017-10-07] MEDS ORDERED: OXYGENDME NAS.CANULA (12:01)
--- NOTE | 2017-10-07 12:03 | HHI.PR ---
Subjective Remarks Follow-up for COPD exacerbation and possible pneumonia Patient stated that he feels mild improvement in his shortness of breathing. Positive for cough. Remains afebrile. Despite minimal improvement in his breathing he does feel like he is getting better but it's been slow. He has no other complaints. Patient stated that he is not on any home oxygen. Objective Vitals Vital Signs Date Time Temp Pulse Resp B/P (MAP) Pulse Ox O2 Delivery O2 Flow Rate FiO2 10/07/17 08:00 95.3 65 18 129/79 (96) 94 10/07/17 07:48 95 Nasal Cannula 4.00 10/07/17 04:44 96 35 10/07/17 01:00 96 35 10/07/17 00:00 96.7 95 18 142/83 (102) 92 10/06/17 21:30 94 Nasal Cannula 4.00 Humidified 10/06/17 20:00 99.0 94 18 119/59 (79) 94 10/06/17 16:00 97.6 76 17 129/78 (95) 95 10/06/17 15:17 93 Nasal Cannula 4.00 I/O 10/06/17 10/06/17 10/06/17 10/07/17 10/07/17 10/07/17 07:00 15:00 23:00 07:00 15:00 23:00 Intake Total 480 ml 370 ml 240 ml Output Total 1990 ml 300 ml 350 ml Balance -1510 ml 70 ml -110 ml Intake Oral 480 ml 120 ml 240 ml IV Total 250 ml Output Urine Total 1990 ml 300 ml 350 ml # Voids 6 1 # Bowel Movements 0 0 Result Diagram: 10/05/17 04510/05/17 0453 Objective Remarks GENERAL: in NAD NECK: Supple, trachea midline. No JVD or lymphadenopathy. CARDIOVASCULAR: Regular rate and rhythm without murmurs, gallops, or rubs. RESPIRATORY: Minimal diffuse expiratory wheezing. No accessory muscle use. GASTROINTESTINAL: Abdomen soft, non-tender, nondistended. MUSCULOSKELETAL: No cyanosis, or edema. BACK: Nontender without obvious deformity. No CVA tenderness. Procedures none Medications and IVs Current Medications Sodium Chloride (NS Flush) 2 ml BID IV FLUSH Last administered on 10/07/17t 08 :48; Start 10/04/17 at 09:00 Sodium Chloride (NS Flush) 2 ml UNSCH PRN IV FLUSH FLUSH AFTER USING IV ACCESS Last administered on 10/07/17 04:26; Start 10/03/17 at 22:15 Albuterol/ Ipratropium (Duoneb Neb) 1 ampule Q4HR NEB PRN INH SOB/WHEEZING; Start 10/03/17 at 22:15 Albuterol/ Ipratropium (Duoneb Neb) 1 ampule Q6HR NEB INH Last administered on 10/04/17 17:12; Start 10/04/17 at 04:00; Stop 10/04/17 at 20:21; Status DC Enoxaparin Sodium (Lovenox Inj) 40 mg Q24H SQ Last administered on 10/04/17 21:32; Start 10/03/17 at 23:00; Stop 10/05/17 at 09:25; Status DC Dextrose (D50w (Vial) Inj) 50 ml UNSCH PRN IV PUSH HYPOGLYCEMIA-SEE COMMENTS; Start 10/03/17 at 22:15 Glucagon (Glucagon Inj) 1 mg UNSCH PRN OTHER HYPOGLYCEMIA-SEE COMMENTS; Start 10/03/17 at 22:15 Insulin Aspart (NovoLOG SUPPLEMENTAL SCALE) 1 ACHS SLIDING SCALE SQ Last administered on 10/07/17 08:48; Start 10/04/17 at 08:00 Methylprednisolone Sodium Succinate (SoluMEDROL INJ) 40 mg Q6HR IV PUSH Last administered on 10/06/17 14:02; Start 10/04/17 at 00:00; Stop 10/06/17 at 18 :36; Status DC Naloxone HCl (Narcan Inj) 0.4 mg UNSCH PRN IV PUSH SEE LABEL COMMENTS; Start 10/04/17 at 00:00 Amlodipine Besylate (Norvasc) 10 mg DAILY PO Last administered on 10/07/17 08 :46; Start 10/04/17 at 09:00 Aspirin (Aspirin Chew) 81 mg DAILY CHEW Last administered on 10/07/17 08:47; Start 10/04/17 at 09:00 Atorvastatin Calcium (Lipitor) 40 mg HS PO Last administered on 10/06/17 21: 42; Start 10/04/17 at 21:00 Losartan Potassium (Cozaar) 50 mg DAILY PO Last administered on 10/07/17 08: 47; Start 10/04/17 at 09:00 Patient Own Medication PT OWN MED: CHLORTHALIDONE 25 MG ... DAILY PO Last administered on 10/06/17 08:59; Start 10/04/17 at 09:00 Albuterol/ Ipratropium (Duoneb Neb) 1 ampule Q4HR WHILE AWAKE NEB NEB Last administered on 10/07/17 11:29; Start 10/04/17 at 16:00 Levofloxacin/ Dextrose 150 ml @ 100 mls/hr Q24H IV Last administered on 14:01; Start 10/04/17 at 13:00 Heparin Sodium (Porcine) (Heparin Inj) 5,000 units Q12HR SQ Last administered on 10/07/17 08:47; Start 10/04/17 at 21:00 Tiotropium Boutte (Spiriva Inh) 18 mcg DAILY INH Last administered on 08:48; Start 10/05/17 at 09:00 Acetaminophen (Tylenol) 650 mg Q4H PRN PO Temp > 100.4; Start 10/04/17 at 13: 30 Ondansetron HCl (Zofran Inj) 4 mg Q6H PRN IV PUSH NAUSEA; Start 10/04/17 at 13 :30 Senna/Docusate Sodium (Estrellita-Colace) 1 tab BID PRN PO CONSTIPATION; Start 10/04 at 13:30 Calcium Carbonate (Tums Chew) 1,000 mg TID PRN CHEW DYSPEPSIA; Start 10/04/17 at 13:30 Hydrochlorothiazide (Hydrodiuril) 25 mg DAILY PO Last administered on 08:46; Start 10/05/17 at 09:00 Iohexol (Omnipaque 350 Inj) 75 ml STK-MED ONCE IVCONTRAST Last administered on 10/04/17 16:53; Start 10/04/17 at 16:53; Stop 10/04/17 at 16:55; Status DC Methylprednisolone Sodium Succinate (SoluMEDROL INJ) 125 mg STK-MED ONCE .ROUTE ; Start 10/05/17 at 06:07; Stop 10/05/17 at 06:08; Status DC Ceftriaxone Sodium 2000 mg/ Sodium Chloride 100 ml @ 200 mls/hr Q24H IV Last administered on 12/29/17at 16:46; Start 10/05/17 at 15:00 Methylprednisolone Sodium Succinate (SoluMEDROL INJ) 40 mg Q8HR IV PUSH Last administered on 10/07/17 04:26; Start 10/06/17 at 22:00 Theophylline (Ramin-24) 200 mg DAILY PO Last administered on 10/07/17 08:47; Start 10/07/17 at 09:00 A/P Problem List: (1) Respiratory failure with hypercapnia ICD Code: J96.92 - Respiratory failure, unspecified with hypercapnia (2) COPD with exacerbation ICD Code: J44.1 - Chronic obstructive pulmonary disease with (acute) exacerbation (3) Benign hypertension ICD Code: I10 - Essential (primary) hypertension (4) Diabetes mellitus, type II ICD Code: E11.9 - Type 2 diabetes mellitus without complications (5) PNA (pneumonia) ICD Code: J18.9 - Pneumonia, unspecified organism Assessment and Plan 57-year-old man who presented with shortness of breathing Respiratory failure with hypercapnia/COPD exacerbation-Improving -Student Dean consulted and following. -CTA negative for any PE. Questionable mid right lung opacity found on chest x- ray. 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 -Continue with BiPAP when necessary -Patient failed a walk test will need home oxygen. DME order place. Community acquired pneumonia -Chest x-ray noted and review with finding of mid right lung opacity -Currently on both Rocephin and Levaquin Chest pressure/elevated troponin -Atypical. Troponin was mildly elevated and stable. Most likely secondary to underlying medical conditions. -CTA no evidence of PE. Diabetes mellitus -Resume home metformin -SSI -Monitor blood glucose Hypertension/hyperlipidemia -Continue home medications DVT prophylaxis: Heparin Michaela Moreno MD Oct 07, 2017 12:03
[2017-10-07] MEDS: LEVOFLOXACIN 750 MG PREMIX INJ 150 ML IV SCH (13:19)
[2017-10-07] MEDS: cefTRIAXone INJ 2,000 MG in SODIUM CHLORIDE 0.9% INJ 100 ML IV SCH (15:15)
--- NOTE | 2017-10-07 18:32 | HHI.PR ---
Subjective Remarks He is much better. Now on a N/C at 3 l. Has less wheezing. CXR improved. Used BiPAP last PM. He has a Home BIPAP machine. Objective Vital Signs Date Time Temp Pulse Resp B/P (MAP) Pulse Ox O2 Delivery O2 Flow Rate FiO2 10/07/17 16:00 96.7 90 18 105/66 (79) 93 10/07/17 14:22 Nasal Cannula 3.00 10/07/17 08:00 95.3 65 18 129/79 (96) 94 10/07/17 07:48 95 Nasal Cannula 4.00 10/07/17 04:44 96 35 10/07/17 01:00 96 35 10/07/17 00:00 96.7 95 18 142/83 (102) 92 10/06/17 21:30 94 Nasal Cannula 4.00 Humidified 10/06/17 20:00 99.0 94 18 119/59 (79) 94 I/O 10/06/17 10/06/17 10/06/17 10/07/17 10/07/17 10/07/17 07:00 15:00 23:00 07:00 15:00 23:00 Intake Total 480 ml 370 ml 240 ml 150 ml 500 ml Output Total 1990 ml 300 ml 350 ml Balance -1510 ml 70 ml -110 ml 150 ml 500 ml Intake Oral 480 ml 120 ml 240 ml 500 ml IV Total 250 ml 150 ml Output Urine Total 1990 ml 300 ml 350 ml # Voids 6 1 2 # Bowel Movements 0 0 1 Result Diagram: 10/05/17 0453 10/05/17 0453 Objective Remarks GENERAL: This obese, middle-aged -[place] male who is not dyspneic at rest. HEENT: Head normocephalic. Pupils are reactive. Tongue is moist. Nasal mucosal erythematous. NECK: Supple with mild venous distension while sitting upright, trachea midline. No thyroid enlargement. CHEST: Distant breath sounds with expiratory wheezes over both lung julio. Prolonged expirations.No Crackles . HEART: The heart sounds are regular S1-S2 with no murmur. No S3. ABDOMEN: The abdomen is soft, protuberant without masses. No organomegaly or tenderness. Bowel sounds are active. EXTREMITIES: Mild edema 1+. Peripheral pulses are not well palpable. NEUROLOGIC: He is awake, moves all extremities and responds appropriately. Reflexes are 1+. No gross motor deficits. SKIN: No lesions observed. Assessment and Plan Assessment and Plan IMPRESSION 1. Hypercapnic respiratory failure.Resolved 2. Basilar atelectasis with probable pneumonia. 3. Rule out pulmonary embolism. 4. Chronic obstructive pulmonary disease. 5. Diabetes mellitus. 6. Obstructive sleep apnea. 7. Hypertension. Plan : 1. Wean o2 to keep sat >90. 2. Continue antibiotics, Rocephin,and switch to po Levaquin 3. BiPAP at HS12/5 CM,FIO2 30% 4. He may get his home CPAP machine here 5. Ambulate with help 6. CXR in am 7. Symbicort 160/4.5 Mcg , 2 puffs bid 8. Will Arrange home sleep study upon discharge. Lynette Louise MD Oct 07, 2017 18:32
[2017-10-07] MEDS: ATORVASTATIN 40 MG TAB PO SCH (21:07)
[2017-10-08] VITALS (9 sets, daily range): BP systolic 107–120; BP diastolic 63–74; PULSE 78–93; RESP 17–20; TEMP 96.4–98.6; O2SAT 91–96
[2017-10-08] MEDS: RESP: ALBUTEROL 2.5 MG/IPRATROPIUM 0.5 MG NEB (SCH) NEB ×2 (07:45→12:09)
[2017-10-08] MEDS: methylPREDNISolone SOD SUCC 40 MG/1 ML VIAL IV PUSH SCH ×2 (08:11→20:37)
[2017-10-08] MEDS: ASPIRIN 81 MG CHEW TAB CHEW SCH (08:11)
[2017-10-08] MEDS: LEVOFLOXACIN 750 MG TAB PO SCH (08:11)
[2017-10-08] MEDS: LOSARTAN 50 MG TAB PO SCH (08:11)
[2017-10-08] MEDS: HEPARIN SODIUM - SQ 10,000 UNITS/ML VIAL SQ SCH ×2 (08:11→20:37)
[2017-10-08] MEDS: THEOPHYLLINE 200 MG EXTENDED RELEASE CAP PO SCH (08:11)
[2017-10-08] MEDS: HYDROCHLOROTHIAZIDE 25 MG TAB PO SCH (08:11)
[2017-10-08] MEDS: PT OWN CHLORTHALIDONE 25 MG PO SCH (08:12)
[2017-10-08] MEDS: SODIUM CHLORIDE 0.9% FLUSH 10 ML FLUSH IV FLUSH SCH ×2 (08:17→20:36)
[2017-10-08] MEDS: TIOTROPIUM BROMIDE 18 MCG INH INH SCH (08:17)
[2017-10-08] MEDS: INSULIN ASPART SUPPLEMENTAL SCALE SQ SCH ×4 (08:18→20:51)
--- NOTE | 2017-10-08 08:18 | HHI.PR ---
Subjective Remarks Patient seen and examined this morning. Vitals overall stable, required 4 L by nasal cannula to maintain an oxygen saturation of 91%. Reports feeling 50% better. Reports SOB when he walks around. He took a shower and tolerated this well. Is okay with going home tomorrow. Objective Vital Signs Date Time Temp Pulse Resp B/P (MAP) Pulse Ox O2 Delivery O2 Flow Rate FiO2 10/08/17 04:53 95 35 10/08/17 01:20 95 35 10/08/17 00:00 98.2 85 20 118/74 (89) 91 10/07/17 21:30 92 Nasal Cannula 4.00 Humidified 10/07/17 21:15 95 Nasal Cannula 4.00 10/07/17 20:00 99.1 98 20 121/62 (81) 92 10/07/17 16:00 96.7 90 18 105/66 (79) 93 10/07/17 14:22 Nasal Cannula 3.00 I/O 10/07/17 10/07/17 10/07/17 10/08/17 10/08/17 10/08/17 07:00 15:00 23:00 07:00 15:00 23:00 Intake Total 240 ml 150 ml 500 ml 840 ml Output Total 350 ml 1100 ml Balance -110 ml 150 ml 500 ml -260 ml Intake Oral 240 ml 500 ml 840 ml IV Total 150 ml Output Urine Total 350 ml 1100 ml # Voids 1 2 # Bowel Movements 1 0 Result Diagram: 10/05/17 0453 10/05/17 0453 Imaging Last Impressions Chest X-Ray 10/06/17 0600 Signed Impressions: Service Date/Time: Friday, October 06, 2017 04:55 - CONCLUSION: New mild patchy opacity in right midlung. Carrington Elizondo MD CT Angiography 10/04/17 1246 Signed Impressions: Service Date/Time: Wednesday, October 04, 2017 16:20 - CONCLUSION: 1. No evidence of pulmonary embolism. 2. Right lower lobe subsegmental airspace disease. 3. Nonspecific prevascular manny enlargement. 4. Hepatomegaly. 5. Superior mediastinal mass characteristic of a large thyroid goiter. Ravin Alexis MD Objective Remarks GENERAL: well appearing, eating breakfast SKIN: Warm and dry. HEAD: Normocephalic. EYES: No scleral icterus. No injection or drainage. NECK: Supple, trachea midline. No JVD or lymphadenopathy. CARDIOVASCULAR: Regular rate and rhythm without murmurs, gallops, or rubs. RESPIRATORY: Breath sounds equal bilaterally. No accessory muscle use. Nasal canula in place. GASTROINTESTINAL: Abdomen soft, non-tender, nondistended. MUSCULOSKELETAL: No cyanosis, or edema. No calf tenderness A/P Problem List: (1) COPD with exacerbation ICD Code: J44.1 - Chronic obstructive pulmonary disease with (acute) exacerbation (2) PNA (pneumonia) ICD Code: J18.9 - Pneumonia, unspecified organism (3) Diabetes mellitus, type II ICD Code: E11.9 - Type 2 diabetes mellitus without complications (4) Benign hypertension ICD Code: I10 - Essential (primary) hypertension Assessment and Plan 57-year-old male with medical history significant for COPD hypertension, and diabetes admitted to the hospital for COPD exacerbation and pneumonia. Respiratory failure, COPD exacerbation - Followed by pulmonology Dr. Becker: Plan for PFTs today, will need a sleep study, we'll continue steroids, Spiriva, Rocephin and Levaquin per pulmonology - Failed oxygen walk test will need home O2, now has oxygen tank - CT negative for PE Community-acquired pneumonia - Emetics per above Diabetes - Continue home metformin was supplemental sliding scale Hypertension and hyperlipidemia - Continue home meds DVT prophylaxis with heparin Discharge Planning D/C likely tomorrow if okay with pulmonology. Will order home health since he lives alone Glory Fields MD Oct 08, 2017 08:18
--- NOTE | 2017-10-08 09:50 | HHI.FF ---
Face to Face Verification Diagnosis: (1) Respiratory failure with hypercapnia (2) COPD with exacerbation (3) Hypoxia Physical Therapy Order: Evaluate and Treat Home Health Nursing Order: Oxygen administration education Nursing assessment with vital signs I have seen patient Jacoby Reeder on 10/08/17. My clinical findings support the need for the requested home health care services because: Ltd mobility - disease progression Patient has SOB I certify that my clinical findings support that this patient is homebound because: Hx COPD- exertion dyspnea/weakness Glory Fields MD Oct 08, 2017 09:49
[2017-10-08] MEDS: cefTRIAXone INJ 2,000 MG in SODIUM CHLORIDE 0.9% INJ 100 ML IV SCH (14:16)
[2017-10-08] MEDS: ATORVASTATIN 40 MG TAB PO SCH (20:40)
[2017-10-09] VITALS (9 sets, daily range): BP systolic 108–124; BP diastolic 63–76; PULSE 75–88; RESP 16–20; TEMP 96.1–98.9; O2SAT 94–98
[2017-10-09] MEDS: PT OWN CHLORTHALIDONE 25 MG PO SCH (09:00)
--- NOTE | 2017-10-09 09:08 | HHI.PR ---
Subjective Remarks Patient seen and examined this morning. Vitals overall stable, required 4 L by nasal cannula to maintain an oxygen saturation of 91%. Used CPAP overnight. NO complaints or concerns. Repeat CXR scheduled for this am. Objective Vital Signs Date Time Temp Pulse Resp B/P (MAP) Pulse Ox O2 Delivery O2 Flow Rate FiO2 10/09/17 08:00 97.8 80 20 118/76 (90) 97 10/09/17 00:18 96 35 10/09/17 00:00 96.1 79 20 108/64 (79) 95 10/08/17 20:32 Nasal Cannula 4.00 Humidified 10/08/17 20:00 98.6 84 20 108/63 (78) 94 10/08/17 17:49 94 Nasal Cannula 4.00 10/08/17 16:02 Nasal Cannula 3.00 10/08/17 16:00 96.7 91 17 107/64 (78) 94 10/08/17 12:00 97.0 93 18 120/68 (85) 94 I/O 10/08/17 10/08/17 10/08/17 10/09/17 10/09/17 10/09/17 07:00 15:00 23:00 07:00 15:00 23:00 Intake Total 840 ml 670 ml 240 ml 240 ml Output Total 1100 ml 1350 ml Balance -260 ml 670 ml -1110 ml 240 ml Intake Oral 840 ml 670 ml 240 ml 240 ml Output Urine Total 1100 ml 1350 ml # Voids 4 # Bowel Movements 0 2 Result Diagram: 10/05/17 0453 10/05/17 0453 Imaging Last Impressions Chest X-Ray 10/09/17 0000 Signed Impressions: Service Date/Time: Monday, October 09, 2017 10:35 - CONCLUSION: Linear areas of increased density seen bilaterally. On the right, this could be related to some thickening of the minor fissure or atelectasis/consolidation. The increased density at the left base just above the lateral left hemidiaphragm is likely related to mild atelectasis or consolidation. Johnnie Moise MD CT Angiography 10/04/17 1246 Signed Impressions: Service Date/Time: Wednesday, October 04, 2017 16:20 - CONCLUSION: 1. No evidence of pulmonary embolism. 2. Right lower lobe subsegmental airspace disease. 3. Nonspecific prevascular manny enlargement. 4. Hepatomegaly. 5. Superior mediastinal mass characteristic of a large thyroid goiter. Ravin Alexis MD Last Impressions Chest X-Ray 10/06/17 0600 Signed Impressions: Service Date/Time: Friday, October 06, 2017 04:55 - CONCLUSION: New mild patchy opacity in right midlung. Carrington Elizondo MD CT Angiography 10/04/17 1246 Signed Impressions: Service Date/Time: Wednesday, October 04, 2017 16:20 - CONCLUSION: 1. No evidence of pulmonary embolism. 2. Right lower lobe subsegmental airspace disease. 3. Nonspecific prevascular manny enlargement. 4. Hepatomegaly. 5. Superior mediastinal mass characteristic of a large thyroid goiter. Ravin Alexis MD Objective Remarks GENERAL: well appearing, eating breakfast SKIN: Warm and dry. HEAD: Normocephalic. EYES: No scleral icterus. No injection or drainage. NECK: Supple, trachea midline. No JVD or lymphadenopathy. CARDIOVASCULAR: Regular rate and rhythm without murmurs, gallops, or rubs. RESPIRATORY: Breath sounds equal bilaterally. No accessory muscle use. Nasal canula in place. GASTROINTESTINAL: Abdomen soft, non-tender, nondistended. MUSCULOSKELETAL: No cyanosis, or edema. No calf tenderness A/P Problem List: (1) COPD with exacerbation ICD Code: J44.1 - Chronic obstructive pulmonary disease with (acute) exacerbation (2) PNA (pneumonia) ICD Code: J18.9 - Pneumonia, unspecified organism (3) Diabetes mellitus, type II ICD Code: E11.9 - Type 2 diabetes mellitus without complications (4) Benign hypertension ICD Code: I10 - Essential (primary) hypertension Assessment and Plan 57-year-old male with medical history significant for COPD hypertension, and diabetes admitted to the hospital for COPD exacerbation and pneumonia. Respiratory failure, COPD exacerbation - Followed by pulmonology Dr. Becker: Plan for PFTs today per pulmonology last note, will need a sleep study, we'll continue steroids, Spiriva, Levaquin per pulmonology - Failed oxygen walk test will need home O2, now has oxygen tank - CT negative for PE - repeat CXR 10/09/16 shows increased linear density Community-acquired pneumonia - Emetics per above Diabetes - Continue home metformin was supplemental sliding scale Hypertension and hyperlipidemia - Continue home meds DVT prophylaxis with heparin Discharge Planning D/C likely today or tomorrow if okay with pulmonology. Pulm last noted wanted PFTS prior to d.c Will order home health since he lives alone Discussed case with nurse and things pending for d.c. Glory Fields MD Oct 09, 2017 09:08
[2017-10-09] MEDS: TIOTROPIUM BROMIDE 18 MCG INH INH SCH (09:28)
[2017-10-09] MEDS: methylPREDNISolone SOD SUCC 40 MG/1 ML VIAL IV PUSH SCH (09:29)
[2017-10-09] MEDS: THEOPHYLLINE 200 MG EXTENDED RELEASE CAP PO SCH (09:29)
[2017-10-09] MEDS: HEPARIN SODIUM - SQ 10,000 UNITS/ML VIAL SQ SCH ×2 (09:30→22:16)
[2017-10-09] MEDS: HYDROCHLOROTHIAZIDE 25 MG TAB PO SCH (09:30)
[2017-10-09] MEDS: LEVOFLOXACIN 750 MG TAB PO SCH (09:30)
[2017-10-09] MEDS: LOSARTAN 50 MG TAB PO SCH (09:30)
[2017-10-09] MEDS: ASPIRIN 81 MG CHEW TAB CHEW SCH (09:30)
[2017-10-09] MEDS: SODIUM CHLORIDE 0.9% FLUSH 10 ML FLUSH IV FLUSH SCH ×2 (09:31→22:16)
[2017-10-09] MEDS: INSULIN ASPART SUPPLEMENTAL SCALE SQ SCH ×4 (09:32→22:15)
[2017-10-09 10:12] LABS: AUTOMATED NEUTROPHIL # 3.1 TH/MM3 (1.8-7.7); HEMATOCRIT 52.8 % (39.0-51.0); LYMPHOCYTE # 0.3 TH/MM3 (1.0-4.8); MEAN CELL VOLUME 89.6 FL (80.0-100.0); MEAN CORPUSCULAR HEMOGLOBIN 28.8 PG (27.0-34.0); MEAN CORPUSCULAR HGB CONC 32.1 % (32.0-36.0); MEAN PLATELET VOLUME 7.6 FL (7.0-11.0); MONO % 8.5 % (0.0-8.0); MONOCYTE # 0.3 TH/MM3 (0-0.9); NEUT % 82.5 % (16.0-70.0); PLATELET COUNT 146 TH/MM3 (150-450); RED BLOOD COUNT 5.89 MIL/MM3 (4.50-5.90); RED CELL DISTRIBUTION WIDTH 15.3 % (11.6-17.2); WHITE BLOOD COUNT 3.8 TH/MM3 (4.0-11.0)
--- NOTE | 2017-10-09 10:48 | RADRPT ---
EXAM DATE/TIME: 10/09/2017 10:35 [facility] COMPARISON: No previous studies available for comparison. INDICATIONS : Shortness of breath. MEDICAL HISTORY : Hypertension. Diabetes mellitus type II. SURGICAL HISTORY : None. ENCOUNTER: Subsequent ACUITY: 1 week PAIN SCORE: 0/10 LOCATION: Bilateral chest FINDINGS: Heart size is normal. The lungs are low volume. There is linear density seen at the right mid and low er lung and at the left base. A significant effusion is not seen. CONCLUSION: Linear areas of increased density seen bilaterally. On the right, this could be related to some thick ening of the minor fissure or atelectasis/consolidation. The increased density at the left base just above the lateral left hemidiaphragm is likely related to mild atelectasis or consolidation. Johnnie Moise MD on October 09, 2017 at 10:43 Board Certified Radiologist. This report was verified electronically.
--- NOTE | 2017-10-09 17:11 | HHI.PR ---
Subjective Remarks No new Complaints . Now on a N/C at 3 l. Has less wheezing. CXR improved. He has a Home BIPAP machine. which is here now. Objective Vital Signs Date Time Temp Pulse Resp B/P (MAP) Pulse Ox O2 Delivery O2 Flow Rate FiO2 10/09/17 16:00 97.7 88 20 114/63 (80) 95 10/09/17 13:06 94 Nasal Cannula 3.00 10/09/17 13:06 94 10/09/17 12:00 98.9 79 20 123/70 (87) 97 10/09/17 08:00 97.8 80 20 118/76 (90) 97 10/09/17 00:18 96 35 10/09/17 00:00 96.1 79 20 108/64 (79) 95 10/08/17 20:32 Nasal Cannula 4.00 Humidified 10/08/17 20:00 98.6 84 20 108/63 (78) 94 10/08/17 17:49 94 Nasal Cannula 4.00 I/O 10/08/17 10/08/17 10/08/17 10/09/17 10/09/17 10/09/17 07:00 15:00 23:00 07:00 15:00 23:00 Intake Total 840 ml 670 ml 240 ml 240 ml Output Total 1100 ml 1350 ml 500 ml Balance -260 ml 670 ml -1110 ml -260 ml Intake Oral 840 ml 670 ml 240 ml 240 ml Output Urine Total 1100 ml 1350 ml 500 ml # Voids 4 1 # Bowel Movements 0 2 Result Diagram: 10/09/17 0924 10/05/17 0453 Objective Remarks GENERAL: This obese, middle-aged -[place] male who is not dyspneic at rest. HEENT: Head normocephalic. Pupils are reactive. Tongue is moist. Nasal mucosa clear Neck: No thyroid enlargement. CHEST: Distant breath sounds with expiratory wheezes over both lung julio. Prolonged expirations.No Crackles . HEART: The heart sounds are regular S1-S2 with no murmur. No S3. ABDOMEN: The abdomen is soft, protuberant without masses. No organomegaly or tenderness. Bowel sounds are active. EXTREMITIES: Mild edema 1+. Peripheral pulses are not well palpable. NEUROLOGIC: He is awake, moves all extremities and responds appropriately. Reflexes are 1+. No gross motor deficits. SKIN: No lesions observed. Assessment and Plan Assessment and Plan IMPRESSION 1. Hypercapnic respiratory failure.Resolved 2. Basilar atelectasis with probable pneumonia. 3. Rule out pulmonary embolism. 4. Chronic obstructive pulmonary disease. 5. Diabetes mellitus. 6. Obstructive sleep apnea. 7. Hypertension. Plan : 1. Wean o2 to keep sat >90. 2. Continue antibiotics, po Levaquin 3.May use Home CPAP machine 4. D/C Solumedrol and change to Prednisone 20 mg bid with Taper 5. ABG in am 6. Rehab Placement 7. Symbicort 160/4.5 Mcg , 2 puffs bid 8. Will Arrange home sleep study upon discharge. Lynette Louise MD Oct 09, 2017 17:11
[2017-10-09] MEDS: ATORVASTATIN 40 MG TAB PO SCH (22:16)
[2017-10-09] MEDS: predniSONE 20 MG TAB PO SCH (22:16)
[2017-10-10] VITALS (7 sets, daily range): BP systolic 116–124; BP diastolic 61–77; PULSE 81–87; RESP 16–19; TEMP 95.8–98.7; O2SAT 94–96
[2017-10-10] MEDS: PT OWN CHLORTHALIDONE 25 MG PO SCH (09:00)
[2017-10-10] MEDS: LEVOFLOXACIN 750 MG TAB PO SCH (09:01)
[2017-10-10] MEDS: THEOPHYLLINE 200 MG EXTENDED RELEASE CAP PO SCH (09:01)
[2017-10-10] MEDS: ASPIRIN 81 MG CHEW TAB CHEW SCH (09:01)
[2017-10-10] MEDS: predniSONE 20 MG TAB PO SCH ×2 (09:01→21:42)
[2017-10-10] MEDS: HYDROCHLOROTHIAZIDE 25 MG TAB PO SCH (09:01)
[2017-10-10] MEDS: LOSARTAN 50 MG TAB PO SCH (09:01)
[2017-10-10] MEDS: INSULIN ASPART SUPPLEMENTAL SCALE SQ SCH ×4 (09:02→21:39)
[2017-10-10] MEDS: HEPARIN SODIUM - SQ 10,000 UNITS/ML VIAL SQ SCH ×2 (09:02→21:41)
[2017-10-10] MEDS: TIOTROPIUM BROMIDE 18 MCG INH INH SCH (09:04)
[2017-10-10] MEDS ORDERED: PRED20 PO (11:33)
[2017-10-10] MEDS ORDERED: LEVA750T9 PO (11:33)
[2017-10-10] MEDS ORDERED: THEO1CAP2 PO (11:33)
[2017-10-10] MEDS ORDERED: Albuterol-Ipratropium Neb INH (11:36)
[2017-10-10] MEDS ORDERED: SPIRCAP INH (11:36)
[2017-10-10] MEDS ORDERED: SYMB160A INH (11:37)
[2017-10-10] MEDS ORDERED: OXYGENDME NAS.CANULA (12:28)
--- NOTE | 2017-10-10 17:02 | HHI.PR ---
Objective Vitals Vital Signs Date Time Temp Pulse Resp B/P (MAP) Pulse Ox O2 Delivery O2 Flow Rate FiO2 10/10/17 16:00 97.9 84 18 118/73 (88) 94 10/10/17 13:40 3.00 10/10/17 12:00 98.7 87 19 116/61 (79) 95 10/10/17 09:44 95 Nasal Cannula 3.00 10/10/17 08:00 97.4 81 18 124/77 (93) 95 10/10/17 03:39 94 35 10/10/17 00:00 95.8 84 16 117/75 (89) 94 10/09/17 23:15 98 35 10/09/17 22:20 Nasal Cannula 4.00 10/09/17 20:00 98.7 77 16 121/73 (89) 96 10/09/17 17:34 95 Nasal Cannula 3.00 I/O 10/09/17 10/09/17 10/09/17 10/10/17 10/10/17 10/10/17 07:00 15:00 23:00 07:00 15:00 23:00 Intake Total 240 ml 240 ml 850 ml 1200 ml Output Total 1350 ml 500 ml 900 ml 1025 ml Balance -1110 ml -260 ml -50 ml 175 ml Intake Oral 240 ml 240 ml 850 ml 1200 ml Output Urine Total 1350 ml 500 ml 900 ml 1025 ml # Voids 1 # Bowel Movements 0 Result Diagram: 10/09/17 0924 Procedures none A/P Problem List: (1) Respiratory failure with hypercapnia ICD Code: J96.92 - Respiratory failure, unspecified with hypercapnia (2) COPD with exacerbation ICD Code: J44.1 - Chronic obstructive pulmonary disease with (acute) exacerbation (3) Benign hypertension ICD Code: I10 - Essential (primary) hypertension (4) Diabetes mellitus, type II ICD Code: E11.9 - Type 2 diabetes mellitus without complications (5) PNA (pneumonia) ICD Code: J18.9 - Pneumonia, unspecified organism Dougie Villanueva MD Oct 10, 2017 17:02
--- NOTE | 2017-10-10 20:13 | HHI.PR ---
Subjective Remarks Better today. Now on a N/C at 3 l. Has less wheezing. CXR improved. He has a Home BIPAP machine. which is here now. Needs a new mask. Objective Vital Signs Date Time Temp Pulse Resp B/P (MAP) Pulse Ox O2 Delivery O2 Flow Rate FiO2 10/10/17 17:45 96 Nasal Cannula 4.00 10/10/17 16:00 97.9 84 18 118/73 (88) 94 10/10/17 13:40 3.00 10/10/17 12:00 98.7 87 19 116/61 (79) 95 10/10/17 09:44 95 Nasal Cannula 3.00 10/10/17 08:00 97.4 81 18 124/77 (93) 95 10/10/17 03:39 94 35 10/10/17 00:00 95.8 84 16 117/75 (89) 94 10/09/17 23:15 98 35 10/09/17 22:20 Nasal Cannula 4.00 I/O 10/09/17 10/09/17 10/09/17 10/10/17 10/10/17 10/10/17 07:00 15:00 23:00 07:00 15:00 23:00 Intake Total 240 ml 240 ml 850 ml 1200 ml 1560 ml Output Total 1350 ml 500 ml 900 ml 1025 ml 1525 ml Balance -1110 ml -260 ml -50 ml 175 ml 35 ml Intake Oral 240 ml 240 ml 850 ml 1200 ml 1560 ml Output Urine Total 1350 ml 500 ml 900 ml 1025 ml 1525 ml # Voids 1 # Bowel Movements 0 1 Result Diagram: 10/09/17 0924 Objective Remarks GENERAL: This obese, middle-aged -[place] male who is alert HEENT: Head normocephalic. Pupils are reactive. Tongue is moist. Nasal mucosa clear Neck: No thyroid enlargement. CHEST: Distant breath sounds with wheezes over both lung julio. Prolonged expirations.No Crackles . HEART: The heart sounds are regular S1-S2 with no murmur. No S3. ABDOMEN: The abdomen is soft, protuberant without masses. No organomegaly or tenderness. Bowel sounds are active. EXTREMITIES: No edema 1+. Peripheral pulses are not well palpable. NEUROLOGIC: He is awake, moves all extremities and responds appropriately. Reflexes are 1+. No gross motor deficits. SKIN: No lesions observed. Assessment and Plan Assessment and Plan IMPRESSION 1. Hypercapnic respiratory failure.Resolved 2. Basilar atelectasis with probable pneumonia. 3. Rule out pulmonary embolism. 4. Chronic obstructive pulmonary disease. 5. Diabetes mellitus. 6. Obstructive sleep apnea. 7. Hypertension. Plan : 1. Wean o2 to keep sat >90. 2. D/C , po Levaquin 3.May use Home CPAP machine 4. Cont Prednisone 20 mg bid with Taper 5. To rehab or home in am 6. Will Arrange home sleep study upon discharge. 7. Symbicort 160/4.5 Mcg , 2 puffs bid Lynette Louise MD Oct 10, 2017 20:13
[2017-10-10] MEDS: ATORVASTATIN 40 MG TAB PO SCH (21:42)
[2017-10-10] MEDS: SODIUM CHLORIDE 0.9% FLUSH 10 ML FLUSH IV FLUSH SCH (21:42)
== END 2017-10-10 11:19 | disposition home or self-care (01) | DRG 189 ==
LOC: NEDDLT 22:55 → NEPGCP 23:05 → OBSVTOIN 23:50 → HCIS 10-04 01:31 → HCVI 10-04 11:30 → N07B 10-06 15:08
PROVIDERS: ADMIT Hospitalist; ATTEND Hospitalist
PROC: 5A09457 Assistance with Respiratory Ventilation, 24-96 Consecutive Hours, Continuous Positive Airway Pressure (ICD-10-PCS; principal; 2017-10-03)
DX: J96.92 Respiratory failure, unspecified with hypercapnia (principal); J18.9 Pneumonia, unspecified organism; J44.0 Chronic obstructive pulmonary disease with (acute) lower respiratory infection; J44.1 Chronic obstructive pulmonary disease with (acute) exacerbation; J98.11 Atelectasis; I10 Essential (primary) hypertension; E11.9 Type 2 diabetes mellitus without complications; Z79.84 Long term (current) use of oral hypoglycemic drugs; G47.33 Obstructive sleep apnea (adult) (pediatric); E78.5 Hyperlipidemia, unspecified; E66.9 Obesity, unspecified; Z79.82 Long term (current) use of aspirin
CPT/HCPCS: 36600; 71010; 71046; 71275; 80048; 82550; 82552; 82805; 82948; 83735; 83880; 84484; 85025; 85379; 85610; 85730; 93005; 94002; 94003; 94010; 94620; 94640; 94664; 96374; J0696; J1644; J1650; J1815; J1956; J2920; J2930; J7512; Q9967